=== PATIENT | female | born 1965 ===

== ENCOUNTER 2019-03-07 08:26 | Day surgery (SDC) | payer BC ==
--- NOTE | 2019-03-07 10:54 | PCM.SURG1 ---
Surgeon's Initial Post Op Note - Surgeon's Notes Surgeon: Manuelito Montes MD [employer] Operator: NONE Type of Anesthesia: Local Pre-Operative Diagnosis: Thyroid nodules Operative Findings: US showed complex right and left thyroid nodules Post-Operative Diagnosis: Thyroid nodules Operation Performed: US guided FNA of right and left thyroid nodules Specimen/Specimens Removed: 25 g FNA x 5 passes per nodule Estimated Blood Loss: EBL {In ML}: 2 Blood Products Given: N/A Drains Used: No Drains Post-Op Condition: Good Date of Surgery/Procedure: 03/07/19 Time of Surgery/Procedure: 10:50
--- NOTE | 2019-03-07 10:55 | CP.SDSHP ---
Same Day Surgery H & P - History Proposed Procedure: US guided FNA of thyroid nodules Pre-Op Diagnosis: Left and right thyroid nodules - Physical Exam Mental Status: Alert & Oriented x3 - Impression Impression: Pt with complex right and left thyroid nodules. Plan US guided FNA. Pt. Evaluated Today:Candidate for Anesthesia & Procedure: No - Date & Time Date: 03/07/19 Time: 10:50 Short Stay Discharge - Short Stay Discharge Admitting Diagnosis/Reason for Visit: NONTOXIC SINGLE THYROID NODULE Disposition: HOME/ ROUTINE
[2019-03-07 12:27] VITALS: BMI 23.0
--- NOTE | 2019-03-07 13:25 | US ---
PROCEDURE: Date of Procedure: 03/07/2019 PROCEDURE: 1. Ultrasound guided FNA of left thyroid nodule 2. Ultrasound guided FNA of RIGHT thyroid nodule, 3. Ultrasound guidance for FNA Medications: 3cc 1% Lidocaine HISTORY: Enlarged thyroid nodules. TECHNIQUE: Following informed consent and procedure time-out, a limited ultrasound patient's neck confirmed the presence of a 2.7 Cm complex mixed solid and cystic left thyroid nodule. Also present is a complex, predominantly solid right thyroid nodule measuring 2.1 cm. After the patient's neck was prepped and draped in the usual sterile fashion, the skin was anesthetized with 1% lidocaine. Ultrasound-guided fine needle aspiration was then performed of the dominant left thyroid nodule. A total of 5 passes were made into the nodule with 25 gauge needle under ultrasound guidance. The FNA specimen was sent for routine pathology and genetics. Ultrasound guided FNA was then performed of the dominant right thyroid nodule. Again 5passes were made into the nodule with 25 gauge needle. The FNA specimen was sent for routine pathology and genetics. Post biopsy ultrasound showed no hematoma. IMPRESSION: Ultrasound-guided FNA of the dominant right and left thyroid nodules.
== END 2019-03-07 11:30 | disposition home or self-care (01) ==
LOC: C.SPRAD 08:26
PROVIDERS: ATTEND Radiology Vascular & Interventional Radiology
DX: E04.2 Nontoxic multinodular goiter (principal)